=== PATIENT | male | born 1940 | race Hispanic/Latino ===

== ENCOUNTER 2023-08-19 05:03 | Observation (INO) | payer OTHER ==
[2023-08-14 13:09] LABS: BASOPHILS # (AUTO) 0.04 K/uL (0.00-0.20); BASOPHILS % (AUTO) 0.7 % (0.0-5.0); EOSINOPHILS # (AUTO) 0.19 K/uL (0.00-0.70); EOSINOPHILS % (AUTO) 3.3 % (0.0-8.0); HEMATOCRIT 37.4 % (42-54); IMMATURE GRANULOCYTE ABSOLUTE 0.02 K/uL (0-1); LYMPHOCYTES # (AUTO) 1.5 K/uL (1.0-4.8); LYMPHOCYTES % (AUTO) 26.3 % (21.0-51.0); MEAN CORPUSCULAR HEMOGLOBIN 30.5 pg (27.0-33.0); MEAN CORPUSCULAR HGB CONC 32.6 g/dL (32.0-36.0); MEAN CORPUSCULAR VOLUME 93.5 fL (79-99); MONOCYTES # (AUTO) 0.5 K/uL (0.1-1.0); MONOCYTES % (AUTO) 7.9 % (3.0-13.0); NEUTROPHILS # (AUTO) 3.5 K/uL (1.8-7.7); NEUTROPHILS % (AUTO) 61.4 % (40.0-77.0); PLATELET COUNT (AUTO) 192 K/uL (130-400); RED CELL DISTRIBUTION WIDTH 13.5 % (11.0-15.5); WHITE BLOOD COUNT (AUTO) 5.7 K/uL (4.8-10.8)
[2023-08-14 13:21] LABS: CREATININE 1.2 mg/dL (0.5-1.5); POTASSIUM 5.1 mmol/L (3.5-5.1)
[2023-08-14 13:23] LABS: INR 0.98 (0.85-1.15); PROTHROMBIN TIME 11.4 SEC (9.6-11.6)
[2023-08-14 13:25] LABS: PARTIAL THROMBOPLASTIN TIME 29.2 SEC (26.3-35.5)
[2023-08-14 13:55] VITALS: BP 133/72; PULSE 53; RESP 17
[2023-08-19] VITALS (26 sets, daily range): BP systolic 109–152; BP diastolic 49–89; PULSE 51–66; RESP 15–19; O2SAT 98
[~2023-08-19] VITALS: Ht 157.5 cm; Wt 54.1 kg
[~2023-08-19 05:03] MED LIST: ATOR10 PO; DONE5TAB33 PO; DUTA0.5C37 PO; FELO5TAB48 PO; LEVO50TA11 PO; METF-445 PO
[2023-08-19] MEDS ORDERED: 0.9%NACL 1000ML 1,000 ML IV ONE (05:49)
[2023-08-19] MEDS ORDERED: CEFAZOLIN SODIUM 2 GM VIAL ONE (05:49)
[2023-08-19] MEDS ORDERED: 0.9%NACL 100ML 48.45 ML, ROPIVACAINE 0.5% 5MG/ML 30ML 246.25 MG, KETOROLAC TROMETHAMINE... IV PRN ×5 (07:00)
[2023-08-19] MEDS ORDERED: GENTAMICIN SULFATE 80 MG/2 ML VIAL ONE (07:16)
[2023-08-19] MEDS ORDERED: CEFAZOLIN SODIUM 1 GM VIAL ONE (07:16)
[2023-08-19] MEDS ORDERED: TRANEXAMIC ACID 1000MG/10ML ONE (07:16)
[2023-08-19] MEDS ORDERED: LIDOCAINE PF 100MG/5ML (2%) SYRINGE 5ML ONE (07:29)
[2023-08-19] MEDS ORDERED: DEXAMETHASONE SOD PHOSPHATE 4 MG/ML 1ML VIAL ONE (07:29)
[2023-08-19] MEDS ORDERED: FENTANYL CITRATE PF 50 MCG/1 ML 2ML VIAL ONE (07:30)
[2023-08-19] MEDS ORDERED: PROPOFOL 10 MG/ML 20ML VIAL IV ONE ×2 (07:30→09:31)
[2023-08-19] MEDS ORDERED: MIDAZOLAM HCL 1 MG/ML 2ML VIAL ONE (07:30)
[2023-08-19] MEDS ORDERED: ONDANSETRON 4MG INJ ONE (07:30)
[2023-08-19] MEDS ORDERED: CEFAZOLIN SODIUM 2 GM VIAL IVPB ONE ×2 (07:56→08:01)
[2023-08-19] MEDS ORDERED: GENTAMICIN SULFATE 80 MG/2 ML VIAL IM ONE (07:58)
[2023-08-19] MEDS ORDERED: TRANEXAMIC ACID 1000MG/10ML IV ONE (08:03)
[2023-08-19] MEDS ORDERED: GLYCOPYRROLATE 1 MG/5 ML SYRINGE ONE (08:26)
[2023-08-19] MEDS ORDERED: EPHEDRINE SULFATE 50 MG/ML AMPULE ONE (08:44)
[2023-08-19] MEDS ORDERED: ACETAMINOPHEN 325 MG TAB PO SCH (11:00)
[2023-08-19] MEDS ORDERED: BENZOCAINE/MENTH/CETYLPYRD CL 1 EACH LOZENGE MM PRN (11:00)
[2023-08-19] MEDS ORDERED: MAG/ALUM/SIMETH 30 ML UDCUP PO PRN (11:00)
[2023-08-19] MEDS ORDERED: DIPHENHYDRAMINE HCL 25 MG CAPSULE PO PRN (11:00)
[2023-08-19] MEDS ORDERED: LACTULOSE 20 GM/30 ML UDCUP PO PRN (11:00)
[2023-08-19] MEDS ORDERED: HYDROMORPHONE PCA 10 MG/50 ML 50 ML IV PRN (11:00)
[2023-08-19] MEDS ORDERED: DIPHENOXYLATE HCL/ATROPINE 2.5/0.025 MG TAB PO PRN (11:00)
[2023-08-19] MEDS ORDERED: ACETAMINOPHEN 325 MG TAB PO PRN ×2 (11:00)
[2023-08-19] MEDS ORDERED: ONDANSETRON 4MG INJ IVP PRN (11:00)
[2023-08-19] MEDS: 0.9%NACL 1000ML 1,000 ML IV SCH ×2 (12:04→21:22)
[2023-08-19] MEDS ORDERED: MAGNESIUM 2GM PREMIX 50ML 50 ML IV PRN (12:30)
[2023-08-19] MEDS ORDERED: DEXTROSE 50%-WATER 50 ML DISP.SYRIN IV PRN (12:30)
[2023-08-19] MEDS ORDERED: GLUCAGON 1MG KIT 1 MG ML IM PRN (12:30)
[2023-08-19] MEDS ORDERED: KCL 20 MEQ ERTAB PO PRN (12:30)
[2023-08-19] MEDS ORDERED: POTASSIUM CHLORIDE 10% ELIXIR 20 MEQ/15 ML UDCUP PO PRN (12:30)
[2023-08-19] MEDS ORDERED: POTASSIUM CHLORIDE 20MEQ/100ML 100 ML IV PRN (12:30)
[2023-08-19] MEDS: TRAMADOL HCL 50 MG TABLET PO PRN ×2 (12:38→21:21)
[2023-08-19] MEDS: INSULIN HUMULIN R 100 UNIT/ML 3ML SQ SCH ×2 (16:30→21:00)
[2023-08-19] MEDS: CEFAZOLIN SODIUM 2 GM VIAL IVPB SCH ×2 (17:19→19:00)
[2023-08-19] MEDS: (Dutasteride 0.5 MG) PO SCH (21:00)
[2023-08-19] MEDS: AMLODIPINE 5 MG TAB PO SCH (21:23)
[2023-08-19] MEDS: DONEPEZIL HCL 5 MG TAB PO SCH (21:23)
[2023-08-19] MEDS: ATORVASTATIN 10 MG TABLET PO SCH (21:23)
[2023-08-19] MEDS ORDERED: DiphenhydrAMINE HCL 50 MG/ML VIAL IM SCH (23:00)
[2023-08-20] VITALS (7 sets, daily range): BP systolic 112–142; BP diastolic 56–70; PULSE 62–77; RESP 16–17; O2SAT 96–98
[2023-08-20] MEDS: 0.9%NACL 1000ML 1,000 ML IV SCH ×2 (04:19→17:18)
[2023-08-20 05:35] LABS: HEMATOCRIT 24.9 % (42-54); MEAN CORPUSCULAR HEMOGLOBIN 30.6 pg (27.0-33.0); MEAN CORPUSCULAR HGB CONC 33.3 g/dL (32.0-36.0); MEAN CORPUSCULAR VOLUME 91.9 fL (79-99); RED BLOOD CELL COUNT(AUTO) 2.71 MIL/uL (4.50-6.20); RED CELL DISTRIBUTION WIDTH 13.6 % (11.0-15.5); WHITE BLOOD COUNT (AUTO) 8.3 K/uL (4.8-10.8)
[2023-08-20] MEDS: INSULIN HUMULIN R 100 UNIT/ML 3ML SQ SCH ×4 (05:45→20:59)
[2023-08-20 05:49] LABS: CREATININE 1.1 mg/dL (0.5-1.5)
[2023-08-20] MEDS: LEVOTHYROXINE 50 MCG TABLET PO SCH (06:30)
[2023-08-20] MEDS: RIVAROXABAN 10 MG TABLET PO SCH (09:25)
[2023-08-20] MEDS: TRAMADOL HCL 50 MG TABLET PO PRN (10:32)
[2023-08-20] MEDS: DONEPEZIL HCL 5 MG TAB PO SCH (20:58)
[2023-08-20] MEDS: AMLODIPINE 5 MG TAB PO SCH (20:59)
[2023-08-20] MEDS: ATORVASTATIN 10 MG TABLET PO SCH (20:59)
[2023-08-20] MEDS: (Dutasteride 0.5 MG) PO SCH (21:00)
[2023-08-21] VITALS (7 sets, daily range): BP systolic 119–133; BP diastolic 56–69; PULSE 70–79; RESP 14–18; O2SAT 94–97
[2023-08-21] MEDS: 0.9%NACL 1000ML 1,000 ML IV SCH ×3 (03:00→23:00)
[2023-08-21 06:50] LABS: HEMATOCRIT 26.2 % (42-54); MEAN CORPUSCULAR HEMOGLOBIN 30.4 pg (27.0-33.0); MEAN CORPUSCULAR HGB CONC 32.1 g/dL (32.0-36.0); MEAN CORPUSCULAR VOLUME 94.9 fL (79-99); RED BLOOD CELL COUNT(AUTO) 2.76 MIL/uL (4.50-6.20); RED CELL DISTRIBUTION WIDTH 13.8 % (11.0-15.5); WHITE BLOOD COUNT (AUTO) 7.4 K/uL (4.8-10.8)
[2023-08-21 07:00] LABS: CREATININE 1.1 mg/dL (0.5-1.5); POTASSIUM 3.9 mmol/L (3.5-5.1)
[2023-08-21 07:02] LABS: INR 1.03 (0.85-1.15); PROTHROMBIN TIME 11.9 SEC (9.6-11.6)
[2023-08-21 07:03] LABS: PARTIAL THROMBOPLASTIN TIME 34.3 SEC (26.3-35.5)
[2023-08-21] MEDS: INSULIN HUMULIN R 100 UNIT/ML 3ML SQ SCH ×4 (07:30→20:55)
[2023-08-21] MEDS: RIVAROXABAN 10 MG TABLET PO SCH (09:49)
[2023-08-21] MEDS: TRAMADOL HCL 50 MG TABLET PO PRN ×2 (09:49→20:54)
[2023-08-21] MEDS: LEVOTHYROXINE 50 MCG TABLET PO SCH (09:49)
[2023-08-21] MEDS: AMLODIPINE 5 MG TAB PO SCH (20:53)
[2023-08-21] MEDS: ATORVASTATIN 10 MG TABLET PO SCH (20:53)
[2023-08-21] MEDS: DONEPEZIL HCL 5 MG TAB PO SCH (20:54)
[2023-08-21] MEDS: (Dutasteride 0.5 MG) PO SCH (20:55)
[2023-08-21] MEDS ORDERED: METFORMIN HCL 850 MG TABLET PO SCH (21:00)
[2023-08-22 04:00] VITALS: BP 133/77; PULSE 76; RESP 18
[2023-08-22] MEDS: INSULIN HUMULIN R 100 UNIT/ML 3ML SQ SCH ×4 (07:30→20:20)
[2023-08-22] MEDS: LEVOTHYROXINE 50 MCG TABLET PO SCH (07:30)
[2023-08-22 08:00] VITALS: BP 119/57; PULSE 83; RESP 14
[2023-08-22] MEDS: METFORMIN HCL 850 MG TABLET PO SCH ×2 (08:00→16:35)
[2023-08-22] MEDS: RIVAROXABAN 10 MG TABLET PO SCH (09:00)
[2023-08-22] MEDS: 0.9%NACL 1000ML 1,000 ML IV SCH ×2 (09:00→19:00)
[2023-08-22 12:00] VITALS: BP 120/62; PULSE 74; RESP 15
[2023-08-22 16:00] VITALS: BP 121/64; PULSE 75; RESP 15
[2023-08-22 20:00] VITALS: BP 129/73; PULSE 73; RESP 18; O2SAT 97
[2023-08-22] MEDS: DONEPEZIL HCL 5 MG TAB PO SCH (20:02)
[2023-08-22] MEDS: ATORVASTATIN 10 MG TABLET PO SCH (20:03)
[2023-08-22] MEDS: AMLODIPINE 5 MG TAB PO SCH (20:03)
[2023-08-22] MEDS: TRAMADOL HCL 50 MG TABLET PO PRN (20:03)
[2023-08-22] MEDS: (Dutasteride 0.5 MG) PO SCH (20:20)
[2023-08-23] VITALS: BP 138/71; PULSE 86; RESP 22
[2023-08-23 04:00] VITALS: BP 146/65; PULSE 77; RESP 22
[2023-08-23 04:21] LABS: BASOPHILS # (AUTO) 0.01 K/uL (0.00-0.20); BASOPHILS % (AUTO) 0.2 % (0.0-5.0); EOSINOPHILS # (AUTO) 0.12 K/uL (0.00-0.70); EOSINOPHILS % (AUTO) 1.9 % (0.0-8.0); HEMATOCRIT 22.3 % (42-54); IMMATURE GRANULOCYTE ABSOLUTE 0.04 K/uL (0-1); LYMPHOCYTES # (AUTO) 1.1 K/uL (1.0-4.8); LYMPHOCYTES % (AUTO) 16.7 % (21.0-51.0); MEAN CORPUSCULAR HEMOGLOBIN 30.5 pg (27.0-33.0); MEAN CORPUSCULAR HGB CONC 32.7 g/dL (32.0-36.0); MEAN CORPUSCULAR VOLUME 93.3 fL (79-99); MONOCYTES # (AUTO) 0.5 K/uL (0.1-1.0); MONOCYTES % (AUTO) 8.5 % (3.0-13.0); NEUTROPHILS # (AUTO) 4.6 K/uL (1.8-7.7); NEUTROPHILS % (AUTO) 72.1 % (40.0-77.0); PLATELET COUNT (AUTO) 169 K/uL (130-400); RED BLOOD CELL COUNT(AUTO) 2.39 MIL/uL (4.50-6.20); RED CELL DISTRIBUTION WIDTH 13.4 % (11.0-15.5); WHITE BLOOD COUNT (AUTO) 6.3 K/uL (4.8-10.8)
[2023-08-23 04:25] LABS: CREATININE 0.9 mg/dL (0.5-1.5); POTASSIUM 3.8 mmol/L (3.5-5.1)
[2023-08-23] MEDS: 0.9%NACL 1000ML 1,000 ML IV SCH ×2 (05:00→13:34)
[2023-08-23] MEDS: LEVOTHYROXINE 50 MCG TABLET PO SCH (06:09)
[2023-08-23] MEDS: INSULIN HUMULIN R 100 UNIT/ML 3ML SQ SCH ×2 (06:31→12:21)
[2023-08-23 08:00] VITALS: BP 126/67; PULSE 89; RESP 16; O2SAT 98
[2023-08-23] MEDS: METFORMIN HCL 850 MG TABLET PO SCH (08:00)
[2023-08-23 09:09] LABS: % IRON SATURATION 7.4 % (30-44)
[2023-08-23] MEDS: RIVAROXABAN 10 MG TABLET PO SCH (09:29)
[2023-08-23] MEDS: TRAMADOL HCL 50 MG TABLET PO PRN (09:29)
[2023-08-23 12:00] VITALS: BP 123/57; PULSE 92; RESP 16
== END 2023-08-23 17:40 ==
LOC: DAH 05:03 → DAHIP 05:04 → EDSTATUS 07:00 → 4AH 11:30
PROVIDERS: ADMIT Orthopaedic Surgery; ATTEND Orthopaedic Surgery
DX: M17.0 Bilateral primary osteoarthritis of knee (principal); E78.5 Hyperlipidemia, unspecified; E03.9 Hypothyroidism, unspecified; I12.9 Hypertensive chronic kidney disease with stage 1 through stage 4 chronic kidney disease, or unspecified chronic kidney disease; E11.22 Type 2 diabetes mellitus with diabetic chronic kidney disease; N18.1 Chronic kidney disease, stage 1; D63.1 Anemia in chronic kidney disease; N40.0 Benign prostatic hyperplasia without lower urinary tract symptoms; F03.90 Unspecified dementia, unspecified severity, without behavioral disturbance, psychotic disturbance, mood disturbance, and anxiety; Z96.652 Presence of left artificial knee joint; Z79.899 Other long term (current) drug therapy
CPT/HCPCS: 80048 ×4; 85025 ×2; 85610 ×2; 85730 ×2; 36415 ×4; 71045; 87641; 27447; 96372; 96365; 96366 ×2; 96368; 82948 ×17; 97161; 97012; 97116 ×9; 97530 ×22; 85027 ×2; 83540; 83550; 86850; 86900; 86901; 86923; J1100; J1815; G0378 ×95; A4510; A6260; A4663; J7120; A4215 ×2; A4649 ×4; J1200; J3010; J0690 ×5; J3490 ×4; J1170; J7030 ×2; J2001; J1580 ×2; J2250; J2704 ×2; J2405; A6223; C1763 ×2; C1776; A5120; A4221; A6450